=== PATIENT | male | born 1990 | race Caucasian/White ===

== ENCOUNTER → 2016-08-31 | Outpatient (CLI) | payer OTHER | END | disposition home or self-care (01) | LOC: C.LAB 02:43 | DX: Z02.83 Encounter for blood-alcohol and blood-drug test (principal) ==

== ENCOUNTER 2016-12-19 03:34 | Emergency (ER) | payer OTHER ==
[~2016-12-19] VITALS: Ht 182.9 cm; Wt 76.3 kg
[2016-12-19 03:38] VITALS: TEMP 36.9; Ht 182.9 cm; Wt 76.3 kg
[2016-12-19] MEDS ORDERED: DOXYCYCLINE HYCLATE 100 MG CAP PO ONE (04:00)
--- NOTE | 2016-12-19 04:06 | EMERGENCY ROOM VISIT NOTE ---
ED Visit Note First contact with patient: 03:43 Chief Complaint: Tick History of Present Illness: Patient is a 26-year-old male who presents to the emergency Department this morning for evaluation of a tick bite to the LEFT thigh. He noticed the tick this evening. He works with [employer]. He attempted to remove the tick, but was unsuccessful. The patient rates his current discomfort as a 0/10. He denies any fevers, chills, rash, headaches, or joint pain. Medications: No current medications. Allergies: No known allergies. PMH: No pertinent past medical history. SHx: Patient is a 26-year-old male who lives locally. ROS: All pertinent positive and negative review of systems are appropriately documented in the History of Present Illness. Physical Exam: VITAL SIGNS - Vital signs and Nursing Notes were reviewed. GENERAL -26-year-old male, well-developed, well-nourished, and in no acute distress. SKIN -tick in place to the LEFT upper thigh. Tick is alive and moving. Mild surrounding ecchymosis related to recent removal attempts. No erythema or Bullseye rash. NEURO - Patient is A&Ox3 and communicates appropriately with the provider. ED Course: Patient was seen and evaluated by myself. Tick was easily removed with tick twister. Patient was treated with 200 mg doxycycline orally for prophylaxis. He was educated on worrisome symptoms for return visit to the emergency department. Patient discharged home in good condition. Impression: Tick Bite with Subsequent Removal Discharge Instructions: You have been seen in the emergency department today for a tick bite to the LEFT thigh. You have been provided a one-time dose of doxycycline for prophylaxis against Lyme disease. Return for any changing or worsening symptoms. Current/Historical Medications Miscellaneous Medications None (Patient States No Home Meds) Allergies Coded Allergies: No Known Allergies (Unverified , 01/09/08) Uncoded Allergies: NKA (Allergy, Mild, 04/06/15) Vital Signs Date Time Temp Pulse Resp B/P Pulse Ox O2 Delivery O2 Flow Rate FiO2 12/19/16 04:14 82 16 138/76 97 12/19/16 03:38 36.9 84 18 123/81 98 Room Air Medications Administered Medications (Trade) Dose Ordered Sig/Laura Route Start Time Stop Time Status Last Admin Dose Admin Doxycycline Hyclate (Vibramycin Cap) 200 mg ONE ONCE PO 12/19/16 04:00 4/21/17 04:01 DC 12/19/16 04:00 200 MG Departure Information Impression Primary Impression: Tick bite Dispostion Home / Self-Care Condition GOOD Referrals No Doctor, Assigned (PCP) Patient Instructions Bites Tick, My [facility] Additional Instructions You have been seen in the emergency department today for a tick bite to the LEFT thigh. You have been provided a one-time dose of doxycycline for prophylaxis against Lyme disease. Return for any changing or worsening symptoms. Problem Qualifiers Primary Impression: Tick bite Encounter type: initial encounter Qualified Codes: W57.XXXA - Bitten or stung by nonvenomous insect and other nonvenomous arthropods, initial encounter
[2016-12-19 04:14] VITALS: BP 138/76; PULSE 82; O2SAT 97
== END 2016-12-19 04:14 | disposition home or self-care (01) ==
LOC: C.EDB 03:34
DX: S70.362A Insect bite (nonvenomous), left thigh, initial encounter (principal); W57.XXXA Bitten or stung by nonvenomous insect and other nonvenomous arthropods, initial encounter